=== PATIENT | male | born 1945 | race Caucasian/White ===

== ENCOUNTER 2017-02-16 12:56 | Emergency (ER) | payer MEDICARE, BC ==
[~2017-02-16] VITALS: Ht 185.4 cm; Wt 89.8 kg
[2017-02-16] MEDS ORDERED: TERAZOSIN HCL2 MG PO (13:28)
[2017-02-16] MEDS ORDERED: PRAVACHOL20 M1 PO (13:30)
[2017-02-16] MEDS ORDERED: MOBIC15 MG PO (13:30)
[2017-02-16] MEDS ORDERED: AMBIEN5 MG PO (13:30)
== END 2017-02-16 14:19 | disposition short-term general hospital (02) ==
LOC: ER 12:56
DX: M54.16 Radiculopathy, lumbar region (principal); Z79.899 Other long term (current) drug therapy; Z88.2 Allergy status to sulfonamides; Z88.8 Allergy status to other drugs, medicaments and biological substances